=== PATIENT | male | born 1970 | race Hispanic/Latino ===

== ENCOUNTER 2016-11-07 14:56 | Observation (INO) | payer SELFPAY ==
--- NOTE | 2016-11-07 15:39 | XRAY ---
Indication: Abdominal pain. Comparison: None PA/lateral chest demonstrates hyperinflated clear lungs. Heart is not enlarged. Bony thorax intact. Impression: Nonacute chest.
[2016-11-07] MEDS ORDERED: ROCEPHIN 1 Gm-D5w 50 ml Bag** 50 ML IV SCH (15:45)
[2016-11-07] MEDS: Lactated Ringers 1,000 ML IV SCH ×2 (15:47→15:52)
[2016-11-07] MEDS ORDERED: TYLENOL 325 MG PO PRN (15:55)
[2016-11-07] MEDS ORDERED: MORPHINE SULFATE 4 MG INJ IV PRN (15:55)
[2016-11-07 15:59] LABS: BASOPHIL % 0.1 % (0.0-0.4); Eosinophil % 0.1 % (0.00-5.0); Granulocytes % 85.4 % (36.0-66.0); Lymphocytes % 8.8 % (24.0-44.0); Mean Cell Volume 85.8 fl (78-100); Mean Corpuscular Hemoglobin 30.5 pg (26-32); Mean Platelet Volume 10.4 fl (6-9.5); Monocytes % 5.6 % (0.0-12.0); Platelet Count 311 K/mm3 (150-450); Red Blood Count 5.48 M/mm3 (4.1-5.6); Red Cell Distribution Width 14.3 % (11.5-14.0); White Blood Count 15.1 K/mm3 (4.0-10.5)
[2016-11-07 16:19] LABS: ALBUMIN 4.2 g/dL (3.4-5.0); ALKALINE PHOSPHATASE 87 U/L (46-116); ANION GAP 15.1 MEQ/L (5-15); BILIRUBIN,TOTAL 0.7 mg/dL (0.2-1.0); BLOOD UREA NITROGEN 14 mg/dL (9-20); CHLORIDE 99 mEq/L (98-107); Carbon Dioxide 27.2 mEq/L (21-32); Glucose 109 MG/DL (70-110); LIPASE 111 U/L (73-393); Potassium 3.2 mEq/L (3.5-5.1); SGOT/AST 18 U/L (15-37); SGPT/ALT 31 U/L (12-78); SODIUM 138 mEq/L (136-145); Total Protein 8.6 gm/dL (6.4-8.2)
[2016-11-07] MEDS ORDERED: POTASSIUM CHLORIDE 20 mEq IN WATER 100ML 100 ML IV ONE (16:35)
[2016-11-07] MEDS ORDERED: Lactated Ringers 1,000 ML IV SCH (17:30)
[2016-11-07 18:39] LABS: ADD URINE CULTURE? YES (NO); Bacteria RARE /HPF (NEGATIVE); COMPLETE URINE MICROSCOPIC? YES; Collection Type CLEAN CATCH; Epithelial Cells RARE /HPF (FEW); Mucus SLIGHT /HPF (NEGATIVE); Ph 6.5 (5-6); WBC 0-2 /HPF (0-5)
--- NOTE | 2016-11-07 18:59 | PCM.DCORD ---
- Discharge Discharge Date: 11/07/16 Disposition: Home, Self-Care Condition: Stable Prescriptions: New Ciprofloxacin HCl 500 mg [Cipro 500 MG] 500 mg PO BID #14 tablet Metronidazole 500 mg [Flagyl 500 MG] 500 mg PO TID #21 tablet Hydrocodone/Acetaminophen [[place] 5-325 Tablet] 1 each PO Q4H PRN #12 tablet PRN Reason: Pain Acetaminophen 325 mg [Tylenol 325 mg] 650 mg PO Q4H PRN PRN #0 tablet PRN Reason: Pain And/Or Fever Continue Lisinopril/Hydrochlorothiazide [Lisinopril-Hctz 10-12.5 mg Tab] 1 each PO DAILY
--- NOTE | 2016-11-07 19:10 | PCM.HP ---
History of Present Illness - Chief Complaint Chief Complaint: abd pain Date: 11/07/16 History of Present Illness: is a 46 year old male. with history of hypertension who began having right sided abdominal pain that radiated across the abdomen that started yesterday. He began running fever and nauseated did not eat today felt very weak and light headed and had a headache. He had no dysuria or discolored urine. No vomiting or diarrhea. History was obtained through boring inspector - Review of Systems Constitutional: Fever, Chills, Fatigue Ears, Nose, & Throat: No Nose Discharge Respiratory: No Cough, No Short Of Breath Cardiac: No Chest Pain, No Edema, No Palpitations Abdominal/Gastrointestinal: Abdominal Pain, Nausea, No Vomiting, No Diarrhea, No Constipation, No Hematemesis, No Hematochezia, No Melena Genitourinary Symptoms: No Dysuria, No Frequency, No Hematuria, No Hesitancy, No Incontinence Musculoskeletal: No Back Pain Skin: No Cellulitis, No Rash Medications & Allergies Home Medications: Home Medication List Acetaminophen 325 mg [Tylenol 325 mg] 650 mg PO Q4H PRN PRN #0 tablet [Rx] Ciprofloxacin HCl 500 mg [Cipro 500 MG] 500 mg PO BID #14 tablet 11/07/16 [Rx] Hydrocodone/Acetaminophen [[place] 5-325 Tablet] 1 each PO Q4H PRN #12 tablet [Rx] Lisinopril/Hydrochlorothiazide [Lisinopril-Hctz 10-12.5 mg Tab] 1 each PO DAILY 11/07/16 [History Confirmed 11/07/16] Metronidazole 500 mg [Flagyl 500 MG] 500 mg PO TID #21 tablet 11/07/16 [Rx ] Allergies/Adverse Reactions: Allergies Allergy/AdvReac Type Severity Reaction Status Date / Time NKA Allergy Verified 11/07/16 15:03 - Past Medical History Past Medical History: No - Past Surgical History Past Surgical History: No - Social History Smoking Status: Never smoker Exposure to second hand smoke: No Alcohol: None Drug Use: none - Physical Exam Vital Signs: Vital Signs - 24 hr Temp Pulse Resp BP Pulse Ox 11/07/16 15:27 101.4 F 110 H 18 128/80 91 L 11/07/16 14:59 101.4 F 110 H 18 128/80 91 L General Appearance: no apparent distress, alert, obese Neurologic Exam: oriented x 3, cooperative Eye Exam: No scleral icterus, No pale conjunctivae Ears, Nose, Throat Exam: moist mucous membranes Neck Exam: non-tender, supple Respiratory Exam: normal breath sounds, lungs clear, No crackles/rales Cardiovascular Exam: regular rate/rhythm, normal heart sounds, normal peripheral pulses, No edema Gastrointestinal/Abdomen Exam: soft, tenderness (right lower left lower and right flank), hernia (left inguinal and umbilical hernia), No distention, No rebound, No hepatomegaly, No splenomegaly Extremity Exam: normal inspection, No calf tenderness, No pedal edema Skin Exam: warm, dry Results - Labs Lab/Micro Results: Lab Results-Last 24 Hours 11/07/16 11/07/16 11/07/16 Range/Units 15:43 15:43 15:46 WBC 15.1 H (4.0-10.5) K/mm3 RBC 5.48 (4.1-5.6) M/mm3 Hgb 16.7 (12.5-18.0) gm/dl Hct 47.0 (42-50) % MCV 85.8 (78-100) fl MCH 30.5 (26-32) pg MCHC 35.5 (32-36) g/dl RDW 14.3 H (11.5-14.0) % Plt Count 311 (150-450) K/mm3 MPV 10.4 H (6-9.5) fl Gran % 85.4 H (36.0-66.0) % Lymphocytes % 8.8 L (24.0-44.0) % Monocytes % 5.6 (0.0-12.0) % Eosinophils % 0.1 (0.00-5.0) % Basophils % 0.1 (0.0-0.4) % Basophils # 0.01 (0-0.4) Sodium 138 (136-145) mEq/L Potassium 3.2 L (3.5-5.1) mEq/L Chloride 99 (98-107) mEq/L Carbon Dioxide 27.2 (21-32) mEq/L Anion Gap 15.1 H (5-15) MEQ/L BUN 14 (9-20) mg/dL Creatinine 1.02 (0.55-1.30) mg/dl Estimated GFR > 60 ML/MIN Glucose 109 (70-110) MG/DL Lactic Acid 1.6 (0.4-2.0) Calcium 8.9 (8.5-10.1) mg/dL Total Bilirubin 0.7 (0.2-1.0) mg/dL AST 18 (15-37) U/L ALT 31 (12-78) U/L Alkaline Phosphatase 87 (46-116) U/L Serum Total Protein 8.6 H (6.4-8.2) gm/dL Albumin 4.2 (3.4-5.0) g/dL Lipase 111 (73-393) U/L Ur Collection Type Urine Color (YELLOW) Urine Appearance (CLEAR) Urine pH (5-6) Ur Specific [place] (1.005-1.025) Urine Protein (Negative) Urine Glucose (UA) (NEGATIVE) mg/dL Urine Ketones (NEGATIVE) Urine Nitrite (NEGATIVE) Urine Bilirubin (NEGATIVE) Urine Urobilinogen (0-1) mg/dL Urine WBC (Auto) (NEGATIVE) Urine RBC (Auto) (0-5) [place]/ul Urine Microscopic RBC (0-2) /HPF Urine Microscopic WBC (0-5) /HPF Ur Epithelial Cells (FEW) /HPF Urine Bacteria (NEGATIVE) /HPF Urine Mucus (NEGATIVE) /HPF Urine Sperm (NEGATIVE) /HPF Specimen Received 11/07/16 Range/Units 18:22 WBC (4.0-10.5) K/mm3 RBC (4.1-5.6) M/mm3 Hgb (12.5-18.0) gm/dl Hct (42-50) % MCV (78-100) fl MCH (26-32) pg MCHC (32-36) g/dl RDW (11.5-14.0) % Plt Count (150-450) K/mm3 MPV (6-9.5) fl Gran % (36.0-66.0) % Lymphocytes % (24.0-44.0) % Monocytes % (0.0-12.0) % Eosinophils % (0.00-5.0) % Basophils % (0.0-0.4) % Basophils # (0-0.4) Sodium (136-145) mEq/L Potassium (3.5-5.1) mEq/L Chloride (98-107) mEq/L Carbon Dioxide (21-32) mEq/L Anion Gap (5-15) MEQ/L BUN (9-20) mg/dL Creatinine (0.55-1.30) mg/dl Estimated GFR ML/MIN Glucose (70-110) MG/DL Lactic Acid (0.4-2.0) Calcium (8.5-10.1) mg/dL Total Bilirubin (0.2-1.0) mg/dL AST (15-37) U/L ALT (12-78) U/L Alkaline Phosphatase (46-116) U/L Serum Total Protein (6.4-8.2) gm/dL Albumin (3.4-5.0) g/dL Lipase (73-393) U/L Ur Collection Type CLEAN CATCH Urine Color YELLOW (YELLOW) Urine Appearance CLEAR (CLEAR) Urine pH 6.5 (5-6) Ur Specific [place] 1.020 (1.005-1.025) Urine Protein 30 (Negative) Urine Glucose (UA) NEGATIVE (NEGATIVE) mg/dL Urine Ketones NEGATIVE (NEGATIVE) Urine Nitrite NEGATIVE (NEGATIVE) Urine Bilirubin NEGATIVE (NEGATIVE) Urine Urobilinogen 0.2 (0-1) mg/dL Urine WBC (Auto) NEGATIVE (NEGATIVE) Urine RBC (Auto) SMALL (0-5) [place]/ul Urine Microscopic RBC 15-25 (0-2) /HPF Urine Microscopic WBC 0-2 (0-5) /HPF Ur Epithelial Cells RARE (FEW) /HPF Urine Bacteria RARE (NEGATIVE) /HPF Urine Mucus SLIGHT (NEGATIVE) /HPF Urine Sperm PRESENT (NEGATIVE) /HPF Specimen Received 11/07/16 1820 - Radiology Impressions Radiology Exams & Impressions: Radiology Procedures Category Date Time Status ABDOMEN AND PELVIS W CONTRAST [CT] Stat Exams 11/07/16 17:01 Taken CHEST 2 VIEWS (PA AND LAT) Urgent Exams 11/07/16 15:02 Completed Assessment/Plan (1) Diverticulitis Current Visit: Yes Status: Acute Qualifiers: Diverticulitis site: large intestine Assessment & Plan: he was seen in [facility] care and initially febrile very weak tender abdomen orthostatic hypotension and tachycardia. He was sent for direct admission. Labs showed leukocytosis and initially some voluntary guarding in the right lower quadrant. He was given IV ceftriaxone, morphine and 2 L LR bolus. A CT was done to rule out appendicitis and finding positive for mild diverticulitis in the sigmoid/descending and a normal appearing appendix. He was given a 20 mEq K rider for mild hypokalemia at 3.2 On re-examination following the CT scan he was no longer having pain and was hungry, he was mildly tender on palpation of the left and right lower quadrants. He had no rebound. We discussed options including continued iv fluids and overnight monitor vs going home today with po antibiotics and outpatient follow up and he wished to proceed with discharge and follow up. He has good support system and is planning to stay with his friend tona to be sure he does well. We will follow up repeat UA as outpatient for the RBC in the urine. (2) Hematuria Current Visit: Yes Status: Acute Code(s): R31.9 - HEMATURIA, UNSPECIFIED (3) Essential hypertension Current Visit: Yes Status: Acute Assessment & Plan: he is going to hold his bp med for the next 3 days or until symptoms are improving Code(s): I10 - ESSENTIAL (PRIMARY) HYPERTENSION
[2016-11-07 19:34] VITALS: BP 144/88; PULSE 94; O2SAT 96
--- NOTE | 2016-11-08 08:35 | XRAY ---
Indication: Right lower/flank pain. Multiple contiguous axial images obtained through the abdomen and pelvis using 80 cc Isovue 370 contrast only. Comparison: None Lung bases are clear. Heart is not enlarged. Noncontrasted stomach and bowel loops appear nonobstructed. Mild scattered colonic diverticulosis throughout. At the junction of the descending and sigmoid colon, there is minimal pericolonic stranding favoring mild diverticulitis. No free fluid/air. Normal appendix. Remaining liver, gallbladder, pancreas, spleen, adrenal glands, kidneys, ureters, bladder, and aorta appear normal in CT appearance and attenuation. No pathologic retroperitoneal lymphadenopathy. Osseous structures intact. Small fatty umbilical and left inguinal hernias. Impression: 1. Scattered colonic diverticulosis. Small focus of mild diverticulitis at the junction of the descending and sigmoid colon. No perforation or abscess. 2. Incidental fatty umbilical and left inguinal hernias. CT DI 19.54
== END 2016-11-07 19:40 | disposition home or self-care (01) ==
LOC: MED SURG 14:56
PROVIDERS: ADMIT Family Medicine; ATTEND Family Medicine
DX: R31.9 Hematuria, unspecified (principal); I10 Essential (primary) hypertension; Z79.899 Other long term (current) drug therapy
CPT/HCPCS: 36415; 71020; 74177; 80053; 81000; 83605; 83690; 85025; 87040; 87086; 93268; G0378; J0696; J2270; J3480

== ENCOUNTER 2018-08-21 10:19 | Day surgery (SDC) | payer SELFPAY ==
[~2018-08-21 10:19] MED LIST: CEFAZOLIN 2 GM-D5W BAG** 2 GM/50 ML ML IV SCH; KEFZOL 1 GM ONE; Lactated Ringers 1,000 ML IV ONE; Lactated Ringers 1,000 ML IV SCH; Sensorcaine 0.25% 10 ML ONE
[2018-08-21] MEDS ORDERED: Naropin 0.5% 30 ML VIAL IJ ONE (10:20)
[2018-08-21] MEDS ORDERED: TORAdol 30 mg Injection IV ONE (10:20)
[2018-08-21] MEDS ORDERED: Decadron 4 MG INJ IV ONE (10:20)
[2018-08-21] MEDS ORDERED: SUBLIMAZE 100 MCG/2 ML IV ONE (10:20)
[2018-08-21] MEDS ORDERED: Zofran 4 MG/2 ML VIAL IV ONE (10:20)
[2018-08-21] MEDS ORDERED: DIPRIVAN 200 MG/20 ML IV ONE (10:20)
[2018-08-21] MEDS ORDERED: SUBLIMAZE 100 MCG/2 ML ONE (13:38)
--- NOTE | 2018-08-21 14:49 | OP ---
SURGERY DATE/TIME: 08/21/2018 1228 PREOPERATIVE DIAGNOSIS: Symptomatic left inguinal hernia. POSTOPERATIVE DIAGNOSIS: Symptomatic left inguinal hernia. PROCEDURE: Left inguinal herniorrhaphy with mesh. SURGEON: Bonifacio Faith M.D. ANESTHESIA: General. COMPLICATIONS: None. CONDITION: Stable. INDICATION: Symptomatic hernia. DESCRIPTION OF PROCEDURE: Taken to surgery. Routine prep and drape. Time out performed. 0.25% Marcaine. Curvilinear incision. External oblique opened. A 3 inch indirect sac. It did have a sliding component. It was sutured under direct visualization 0 Prolene. Excess fat as possible removed. Floor repaired with 1 x 4 mesh in a Nash's ligament type fashion making sure not to entrap any nerve fibers. Satisfactory repair is present. Internal ring one clamp tight. External oblique closed with 0 Vicryl. Abdi fascia closed with 2-0 Vicryl. Skin closed with 4-0 Vicryl. Steri-Strips applied. Sterile dressing applied. The patient tolerated the procedure satisfactorily.
[2018-08-21] MEDS ORDERED: MORPHINE SULFATE 4 MG INJ IV PRN (14:58)
[2018-08-21 15:06] VITALS: O2SAT 96
[2018-08-21] MEDS ORDERED: Zofran 4 MG/2 ML VIAL IV PRN (15:21)
[2018-08-21] MEDS ORDERED: NORCO 7.5/325 MG TAB PO PRN (15:22)
[2018-08-21 15:23] VITALS: BP 109/75; PULSE 60
== END 2018-08-21 15:46 | disposition home or self-care (01) ==
LOC: SDC 10:19
PROVIDERS: ATTEND Surgery
DX: K40.90 Unilateral inguinal hernia, without obstruction or gangrene, not specified as recurrent (principal)
CPT/HCPCS: 64486; 76937; 76942; J0690; J1100; J1885; J2270; J2405; J2704; J2795; J3010